=== PATIENT | male | born 1945 | race Caucasian/White ===

== ENCOUNTER 2018-01-29 02:08 | Emergency (ER) | payer OTHER, BC ==
--- NOTE | 2018-01-29 02:29 | EDPHY ---
H & P Stated Complaint: URINARY RETENTION/BPH Time Seen by Provider: 01/29/18 02:29 HPI/ROS: HPI CHIEF COMPLAINT: Unable to urinate. HISTORY OF PRESENT ILLNESS: Patient is a 72-year-old male, he is visiting from [place], he presents emergency room with unable to urinate. He states he has been having very weak stream and little urine output throughout the day but feels like he has to go and has the urge to go. When he strains he can get some urine out. He states he has not had a full stream today. He feels the urge to urinate a and now has some bladder distention and abdominal discomfort that brought him to the emergency room. He has never had a Tong catheter. However has suffered from BPH. He has a urologist back in [place]. He is due to fly back to [place] on Saturday. Past Medical History: History of BPH, factor 5 Leiden deficiency on Xarelto. Past Surgical History: No surgical history Social History: Denies drugs alcohol tobacco. Resides in [place]. Family History: Noncontributory ROS REVIEW OF SYSTEMS: A comprehensive 10 point review of systems is otherwise negative aside from elements mentioned in the history of present illness. Exam Constitutional appears slightly uncomfortable triage nursing summary reviewed, vital signs reviewed, awake/alert. Eyes normal conjunctivae and sclera, EOMI, PERRLA. HENT normal inspection, atraumatic, moist mucus membranes, no epistaxis, neck supple/ no meningismus, no raccoon eyes. Respiratory clear to auscultation bilaterally, normal breath sounds, no respiratory distress, no wheezing. Cardiovascular rate normal, regular rhythm, no murmur, no edema, distal pulses normal. Gastrointestinal distended bladder tender palpation of the suprapubic region, no rebound, no guarding, normal bowel sounds, no distension, no pulsatile mass. Genitourinary no CVA tenderness. Musculoskeletal no midline vertebral tenderness, full range of motion, no calf swelling, no tenderness of extremities, no meningismus, good pulses, neurovascularly intact. Skin pink, warm, & dry, no rash, skin atraumatic. Neurologic awake, alert and oriented x 3, AAOx3, moves all 4 extremities equally, motor intact, sensory intact, CN II-XII intact, normal cerebellar, normal vision, normal speech. Psychiatric normal mood/affect. Heme/Lymph/Immune no lymphadenopathy. Differential Diagnosis: Includes but is not limited to in a particular order urinary retention, outflow obstruction, BPH leading to outflow obstruction, UTI , cystitis, renal failure Medical Decision Making: Given the patient's bladder distention abdominal discomfort and bladder scan results the patient is retaining urine and unable to urinate on his own. Will place a Tong catheter for relief of this urinary outflow obstruction and help with his pain. Will check UA for infection. Re-evaluation: Do recommend he follows up with his urologist back in [place] when he returns on Saturday. Additionally I will give him a urologist locally here in case he is still in town. Plan will be for him to go home with Tong catheter/leg bag. I discussed return precautions with him he understands return emergency room if develops fever, worsening abdominal pain, back pain, flank pain, questions or concerns or complications with this Tong catheter including obstruction or significant blood in his catheter bag. He understands this. Bladder scan 498. Urinalysis reviewed. No evidence of acute infection. Patient Tong catheter placed. Good urine output. Patient was able to put out 300 cc plus from the Tong catheter. He is feeling much better. Abdomen soft nontender. Nondistended. Patient will go home with a Tong catheter. I did give him referral to Urology here in [place] in case he still in town. However I do recommend he follows up with his urologist in [place]. He is due to fly back in 2 days or Saturday. I do recommend he contact his urologist today to make a follow-up appointment for urinary retention with an indwelling Tong catheter. Additionally understands return precautions understands return emergency room if develops abdominal pain, fever, bleeding, problems this Tong catheter. Source: Patient - Personal History Current Tetanus Diphtheria and Acellular Pertussis (TDAP): Yes - Medical/Surgical History Hx Asthma: No Hx Chronic Respiratory Disease: No Hx Diabetes: No Hx Cardiac Disease: No Hx Renal Disease: No Hx Cirrhosis: No Hx Alcoholism: No Hx HIV/AIDS: No Hx Splenectomy or Spleen Trauma: No Other PMH: BPH, FACTOR V LIDEN, SEPSIS/UTI. - Social History Smoking Status: Never smoked Constitutional: Initial Vital Signs Temperature (C) 37.0 C 01/29/18 02:16 Heart Rate 131 H 01/29/18 02:16 Respiratory Rate 18 01/29/18 02:16 Blood Pressure 151/91 H 01/29/18 02:16 O2 Sat (%) 93 01/29/18 02:16 O2 Delivery Mode Room Air Allergies/Adverse Reactions: No Known Allergies Allergy (Unverified 01/29/18 02:15) Home Medications: Medication Instructions Recorded Cholesteral Med 01/29/18 Flomax 01/29/18 Xarelto 01/29/18 Medical Decision Making - Data Points Laboratory Results: 01/29/18 02:50 Urine Color YELLOW Urine Appearance CLEAR Urine pH 5.0 (5.0-7.5) Ur Specific [place] 1.006 (1.002-1.030) Urine Protein NEGATIVE (NEGATIVE) Urine Ketones NEGATIVE (NEGATIVE) Urine Blood 2+ H (NEGATIVE) Urine Nitrate NEGATIVE (NEGATIVE) Urine Bilirubin NEGATIVE (NEGATIVE) Urine Urobilinogen NEGATIVE EU EU (0.2-1.0) Ur Leukocyte Esterase NEGATIVE (NEGATIVE) Urine RBC 1-3 /hpf /hpf (0-3) Urine WBC NONE SEEN /hpf /hpf (0-3) Ur Epithelial Cells NONE SEEN /lpf /lpf (NONE-1+) Urine Mucus TRACE /lpf /lpf (NONE-1+) Urine Glucose NEGATIVE (NEGATIVE) Departure - Departure Disposition: Home, Routine, Self-Care Clinical Impression: Urinary retention Condition: Good Instructions: Urinary Retention in Men (ED) Additional Instructions: 1. Make sure to drink lots of fluids stay well-hydrated. 2. Please follow up with Urology either are Urology local or your urologist back in [place]. 3. Return emergency room if develops worsening abdominal pain, back pain, fever , questions or concerns about your Tong catheter or complications, blood in urine. Referrals: Ced Santillan MD [Medical Doctor] - As per Instructions
[2018-01-29] MEDS ORDERED: LIDOCAINE 2% JELLY 20 ML (UROJECT) ONE (02:40)
[2018-01-29 04:22] VITALS: BP 123/66
== END 2018-01-29 04:22 | disposition home or self-care (01) ==
PROC: 0T9B70Z Drainage of Bladder with Drainage Device, Via Natural or Artificial Opening (ICD-10-PCS; principal; 2018-01-29)
DX: R33.9 Retention of urine, unspecified (principal)